=== PATIENT | female | born 1965 | race Asian ===

== ENCOUNTER 2022-08-18 18:15 | Emergency (ER) | payer OTHER ==
[~2022-08-18] VITALS: Ht 170.2 cm; Wt 97.5 kg
[2022-08-18 18:19] VITALS: TEMP 98.4
[2022-08-18 19:21] LABS: PLATELET COUNT 224 K/uL (152-353)
[2022-08-18 19:53] LABS: PARTIAL THROMBOPLASTIN TIME 26.4 SECONDS (24.5-33.6)
[2022-08-18 21:10] VITALS: BP 161/63
== END 2022-08-18 21:10 | disposition home or self-care (01) ==
LOC: ED 18:15
PROVIDERS: Emergency Medicine
DX: G45.9 Transient cerebral ischemic attack, unspecified (principal); I10 Essential (primary) hypertension
CPT/HCPCS: 80053; 80307; 83880; 84484; 85027; 85610; 85730; 93005; 96374; 96375; 99284; J0360; J3490